=== PATIENT | male | born 1940 | race Caucasian/White ===

== ENCOUNTER 2021-09-15 12:26 | Emergency (ER) | payer MEDICARE, OTHER ==
[~2021-09-15] VITALS: Ht 185.4 cm; Wt 68.2 kg
[~2021-09-15 12:26] MED LIST: 00186-0372-20 IH; ACIPHEX PO; ACIPHEX20 MG PO; ASPI325T6 PO; CARDIZEM CD 24240 MG PO; CENTRUM SILVER1 TA1 PO; CEPHALEXIN500 M1 PO; COUMADIN 6MG6 MG/TAB PO; DEXILANT60 MG PO; IRON FERROUS S325 MG PO; LISINOPRIL20 MG PO; MOBIC15 MG PO; NASAL 15 ML15 M1 NS; NASONEX SPRAY17 GM NS; NORVASC 10MG10 MG PO; PEPCID 20MG TAB20 MG PO; PLAVIX 75MG TAB75 MG PO; PRAVACHOL 40MG40 MG PO; PRILOSEC 20MG20 MG PO; PRINIVIL10 MG PO; PROTONIX 40MG T40 MG PO; PROVENTIL0.09 MG/A1 IH; RT ADVAIR 128 DISKUS IH; TOPROL XL100 MG PO; TYLENOL 500MG500 MG PO; ULTRAM 50MG TAB50 MG PO; VITAMIN D32000 I1 PO; ZOCOR40 MG PO
[2021-09-15 12:55] VITALS: TEMP 97.7
[2021-09-15 14:17] LABS: BASO % 0.5 % (0.0-2.0); EOS # 0.1 K/mm3 (0.0-0.7); GRAN # 4.8 K/mm3 (1.4-6.5); GRAN % 65.4 % (42.2-75.2); HEMATOCRIT 37.9 % (42.0-52.0); HEMOGLOBIN 12.4 g/dl (13.5-18.0); LYMPH # 1.4 K/mm3 (1.2-3.4); LYMPH % 19.6 % (20.0-51.0); MEAN CELL VOLUME 95 fl (80.0-100.0); MEAN CORPUSCULAR HEMOGLOBIN 31 pg (27-31); MEAN CORPUSCULAR HGB CONC 33 g/dl (33.0-37.0); MEAN PLATELET VOLUME 10.8 fl (7.4-10.4); PLATELET COUNT 243 K/mm3 (130-400); RED BLOOD COUNT 3.98 M/mm3 (4.20-5.60); REDCELL DISTRIBUTION WIDTH-CV 14.1 % (11.5-14.5)
[2021-09-15 15:48] LABS: ALBUMIN 3.5 gm/dL (3.4-4.8); BILIRUBIN,TOTAL 0.8 mg/dL (0.2-1.2); CALCIUM 8.9 mg/dL (8.4-10.2); CREATININE, serum 1.21 mg/dL (0.72-1.25); POTASSIUM 4.5 mmol/L (3.5-4.5); TOTAL PROTEIN 7.2 gm/dL (6.2-8.1)
[2021-09-15 16:46] VITALS: BP 136/74; PULSE 89
== END 2021-09-15 16:46 | disposition home or self-care (01) ==
LOC: COL.ER 12:26
PROVIDERS: Emergency Medicine
DX: G89.18 Other acute postprocedural pain (principal); R60.0 Localized edema

== ENCOUNTER 2021-09-19 16:07 | Inpatient (IN) | payer MEDICARE, OTHER ==
[~2021-09-19] VITALS: Ht 167.6 cm; Wt 67.4 kg
[2021-09-19 19:00] LABS: BASO # 0.1 K/mm3 (0.0-0.2); BASO % 0.7 % (0.0-2.0); EOS # 0.1 K/mm3 (0.0-0.7); EOS % 1.7 % (0.0-4.0); GRAN # 5.9 K/mm3 (1.4-6.5); GRAN % 72.5 % (42.2-75.2); HEMOGLOBIN 11.3 g/dl (13.5-18.0); LYMPH # 1.2 K/mm3 (1.2-3.4); LYMPH % 14.6 % (20.0-51.0); MEAN CELL VOLUME 93 fl (80.0-100.0); MEAN CORPUSCULAR HEMOGLOBIN 31 pg (27-31); MEAN CORPUSCULAR HGB CONC 34 g/dl (33.0-37.0); MEAN PLATELET VOLUME 10.1 fl (7.4-10.4); MONO # 0.8 K/mm3 (0.1-0.6); MONO % 10.1 % (1.7-9.3); PLATELET COUNT 290 K/mm3 (130-400); REDCELL DISTRIBUTION WIDTH-CV 14.4 % (11.5-14.5)
[2021-09-19 19:02] LABS: HEMATOCRIT 33.4 % (42.0-52.0)
[2021-09-19 19:22] LABS: ALBUMIN 3.3 gm/dL (3.4-4.8); BILIRUBIN,TOTAL 0.9 mg/dL (0.2-1.2); C-REACTIVE PROTEIN 7.9 mg/dL (0.00-0.50); CALCIUM 8.8 mg/dL (8.4-10.2); CREATININE, serum 1.19 mg/dL (0.72-1.25); POTASSIUM 4.4 mmol/L (3.5-4.5); TOTAL PROTEIN 6.8 gm/dL (6.2-8.1)
[2021-09-19 19:26] LABS: ERYTHROCYTE SEDIMENTATION RATE 23 mm/hr (0-30)
--- NOTE | 2021-09-19 23:45 | NUR ---
PT ADMITTED TO ROOM 359 FROM EMERGENCY DEPT. SEE ASSESS. LLE UP ON PILLOWS. LLE VERY SENSITIVE TO TOUCH. CALL LIGHT IN REACH. BED ALARM SET.
[2021-09-20 00:15] VITALS: BP 141/63; PULSE 64; TEMP 97.8
[2021-09-20] MEDS ORDERED: TOPROL XL100 MG PO (00:35)
[2021-09-20] MEDS ORDERED: ZOFRAN 4MG T4 MG/TAB PO (00:37)
[2021-09-20] MEDS ORDERED: COLACE 100100 MG/CAP PO (00:39)
[2021-09-20] MEDS ORDERED: MOBIC15 MG PO (00:40)
[2021-09-20] MEDS ORDERED: ASPIRIN 32325 MG/TAB PO (00:42)
[2021-09-20] MEDS ORDERED: CEPHALEXIN500 M1 PO (00:43)
[2021-09-20] MEDS ORDERED: NORCO 325 MG-51 TAB PO (00:46)
--- NOTE | 2021-09-20 00:51 | NUR ---
Vancomycin Initial Dosing Pharmacy Note Ordering provider: Peter Baez MD Indication/duration: Cellulitis of foot x 7 days Relevant comorbidities: HTN LABS: SCr = 1.19, WBC = 8.1 Recommendation: Will draw troughs and follow levels. Loading dose: 1.25 grams Maintenance dose: 1 gram every 24 hours Trough goal: 10-15 ug/mL
--- NOTE | 2021-09-20 01:00 | NUR ---
GAVE ZOFRAN IV FOR VOMITING X2.
--- NOTE | 2021-09-20 01:58 | NUR ---
PT STILL NAUSEATED AT THIS TIME.
--- NOTE | 2021-09-20 03:00 | NUR ---
PT SLEEPING. NO FURTHER NAUSEA.
[2021-09-20 04:27] VITALS: BP 147/50; PULSE 65; TEMP 98.6
--- NOTE | 2021-09-20 04:29 | NUR ---
PT CONTINUES SLEPPING. ZOSYN INFUSING AT 25CC/HR. NO DISTRESS.
[2021-09-20 08:00] VITALS: BP 174/71; PULSE 67; TEMP 99.4
[2021-09-20 12:00] VITALS: BP 169/74; PULSE 65; TEMP 99.2
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
--- NOTE | 2021-09-20 17:33 | NUR ---
Patient resting most of the shift, was incontinent when checking VS. Easily awakened with verbal command. A&Ox3. VSS. IV CDI, fluids infusing. Denies pain and discomfort. Nursing staff ordering dinner. Call light within reach. Bed alarm on
--- NOTE | 2021-09-20 21:57 | NUR ---
PT VERY TIRED. SLEEPING ALOT. SEE SHIFT ASSESSMENT. FOUND PULSES ON LT FOOT WITH DOPPLER.
[2021-09-21 00:55] VITALS: BP 154/71; PULSE 65; TEMP 98.6
[2021-09-21 04:31] VITALS: BP 154/77; PULSE 66; TEMP 98.3
--- NOTE | 2021-09-21 05:06 | NUR ---
PT HAS SLEPT MOST OF THIS SHIFT. NO DISTRESS. OCCASIONAL LOOSE NONPRODUCTIVE COUGH NOTED. USING URINAL TONIGHT. NO INCONTINENCE. CALL LIGHT IN REACH. BED ALARM IN PLACE.
[2021-09-21 06:52] LABS: BASO % 0.4 % (0.0-2.0); EOS # 0.2 K/mm3 (0.0-0.7); EOS % 2.9 % (0.0-4.0); GRAN # 5.5 K/mm3 (1.4-6.5); GRAN % 75.5 % (42.2-75.2); HEMOGLOBIN 10.5 g/dl (13.5-18.0); LYMPH # 0.9 K/mm3 (1.2-3.4); LYMPH % 12.5 % (20.0-51.0); MEAN CORPUSCULAR HEMOGLOBIN 32 pg (27-31); MEAN CORPUSCULAR HGB CONC 32 g/dl (33.0-37.0); MEAN PLATELET VOLUME 10.2 fl (7.4-10.4); MONO # 0.6 K/mm3 (0.1-0.6); MONO % 8.4 % (1.7-9.3); PLATELET COUNT 285 K/mm3 (130-400); RED BLOOD COUNT 3.31 M/mm3 (4.20-5.60); REDCELL DISTRIBUTION WIDTH-CV 14.6 % (11.5-14.5)
[2021-09-21 07:02] LABS: HEMATOCRIT 32.5 % (42.0-52.0); MEAN CELL VOLUME 98 fl (80.0-100.0)
[2021-09-21 07:07] LABS: CALCIUM 8.2 mg/dL (8.4-10.2); CREATININE, serum 1.02 mg/dL (0.72-1.25); POTASSIUM 4.2 mmol/L (3.5-4.5)
--- NOTE | 2021-09-21 08:00 | NUR ---
Patient laying in bed resting. Easily awakened with verbal command. Nursing staff applied MARIA ESTHER hose bilateral legs, foot elevated on pillow and ice applied to left foot. Pain medication given as requested. A&Ox3. VSS. IV CDI, fluids infusing. Nursing staff assisted with ordering breakfast. Call light within reach. Bed alarm on
[2021-09-21 11:27] VITALS: BP 160/66; PULSE 65; TEMP 97.5
--- NOTE | 2021-09-21 14:47 | NUR ---
This SW received phone call from the patient's daughter stating that her father called her telling her that he was being discharged today. At the time the physician had not rounded on the patient yet. Provided her with the above update and that there was nothing notated in his chart indicating that her father was going to be discharged today.
[2021-09-21 17:09] VITALS: BP 141/56; PULSE 65; TEMP 97.8
--- NOTE | 2021-09-21 17:13 | NUR ---
MARIA ESTHER hose placed on patient, patient did not tolerate well, reports of pain in left leg/foot, not relieved with pain medication, elevation and ice. Per patient request, MARIA ESTHER hose removed, foot elevated on pillow. A&Ox3. VSS. IV CDI. Call light within reach. Bed alarm on
[2021-09-21 21:10] VITALS: BP 157/68; PULSE 65; TEMP 98.6
--- NOTE | 2021-09-21 21:35 | NUR ---
Pt resting in bed upon entering for assessment. Pt was laying on his side and down toward the bottom of the bed. He was also this way during bedside shift report. Educated the importance of him keeping his leg elevated and not having anything under his knee. Pt cannot completely straighten his left leg at this time. Pts left foot is slightly swollen, reddish/purplish in color. There are several blisters to the top of his foot that have popped and 2 blisters that have not popped yet. Pts foot is very tender to the touch, but reports not having any pain when left alone. Pt does answer questions appropriately when assessing orientation, but does seem to not have a clear understanding about what is going on. Pt just grins, nods and says "okay" when I talk about the imporance of having ice on, chris hose, keeping leg elevated and nothing under knee. Then when I say "I am going to get an ice pack for your foot," he then refuses and says he doesn't want it. Same goes for the chris hose. Shortly after leaving the room, pt then rang call light asking for pain medicaiton and was again layin on his side with legs bent and not elevated.
[2021-09-22] VITALS (7 sets, daily range): BP systolic 128–146; BP diastolic 47–82; PULSE 64–66; TEMP 97.5–97.8
[2021-09-22 06:35] LABS: CALCIUM 8.1 mg/dL (8.4-10.2); CREATININE, serum 0.99 mg/dL (0.72-1.25); POTASSIUM 3.8 mmol/L (3.5-4.5)
[2021-09-22 06:41] LABS: BASO % 0.6 % (0.0-2.0); EOS # 0.2 K/mm3 (0.0-0.7); EOS % 3.1 % (0.0-4.0); GRAN # 4.8 K/mm3 (1.4-6.5); GRAN % 72.3 % (42.2-75.2); HEMOGLOBIN 10.3 g/dl (13.5-18.0); LYMPH % 14.8 % (20.0-51.0); MEAN CELL VOLUME 95 fl (80.0-100.0); MEAN CORPUSCULAR HEMOGLOBIN 32 pg (27-31); MEAN CORPUSCULAR HGB CONC 33 g/dl (33.0-37.0); MEAN PLATELET VOLUME 10.2 fl (7.4-10.4); MONO # 0.6 K/mm3 (0.1-0.6); MONO % 8.8 % (1.7-9.3); PLATELET COUNT 261 K/mm3 (130-400); RED BLOOD COUNT 3.27 M/mm3 (4.20-5.60); REDCELL DISTRIBUTION WIDTH-CV 14.4 % (11.5-14.5)
--- NOTE | 2021-09-22 09:12 | NUR ---
Scheduled medications given. Shift assessment performed. VSS. Patient A&O. Patient states that he has 4/10 aching pain in his left foot, but denies the need for any interventions at this time. Left foot red and swollen. Scabbed over blisters noted. Patient denies any further pain, discomfort, SOA, or further needs at this time. Call light in reach. Fall percautions in place.
--- NOTE | 2021-09-22 15:03 | NUR ---
Global Climate Change Researcher met with patient and patient's daughter, Camryn to discuss PT recommendation for post acute rehab. Patient is agreeable to this and would like referrals sent to [facility], and [facility]. Patient is adamant that he will not go to [facility] in . VAL contacted [facility] Director to give referral. VAL then faxed referrals to [facility], and [facility]. Discharge Plan: Post acute rehab
--- NOTE | 2021-09-22 15:53 | NUR ---
Lisa jacobo [facility] advised they can accept referral.
--- NOTE | 2021-09-22 18:23 | NUR ---
Patient has had an ok day. PRN pain medications given for pain in LLE. Patient unable to bear weight on extremity without extreme pain. Patient currenlty resting in bed. No signs of pain, discomfort, SOA, or further needs at this time. Call light in reach. Fall percautions in place. VSS. Patient A&O.
--- NOTE | 2021-09-22 19:15 | NUR ---
MANFRED De contacted regarding worsening discoloration and edema to patient's LLE. Doppler used, pulse found. Verbal orders to check pulses on effected extremity q2 hours and report any increased pain, discomfort, or loss of pulses. Information passed on to JONEL Cohen.
--- NOTE | 2021-09-22 20:30 | NUR ---
Initial shift assessment done. Alert/oriented/very pleasant, states hisL/ foot pain is 8/10- will give a [place] at this time, Left foot is very purplish/red, with black areas over top of foot-, has good sensation, tried to find pulses with doppler and having a hard time- called Charo SHEARER and she came and we did get both DP and PT pulses with doppler, she states its ok to do pulses every 4 hours now,, does have bruising all up to left leg thigh
[2021-09-23] VITALS (7 sets, daily range): BP systolic 131–154; BP diastolic 62–78; PULSE 64–65; TEMP 97.3–98.3
--- NOTE | 2021-09-23 00:15 | NUR ---
DP AND PT pedal pulses found per doppler at this time-left foot
--- NOTE | 2021-09-23 04:00 | NUR ---
Has been resting on and off this shift- VSS, did hear doppler pulses at this time to left foot ,DP and PT , overall left foot/ leg remains the same-no changes during the night. denies need for pain meds at this time-
[2021-09-23 06:38] LABS: BASO # 0.1 K/mm3 (0.0-0.2); BASO % 0.6 % (0.0-2.0); EOS # 0.3 K/mm3 (0.0-0.7); EOS % 3.9 % (0.0-4.0); GRAN # 5.8 K/mm3 (1.4-6.5); GRAN % 74.9 % (42.2-75.2); HEMOGLOBIN 10.9 g/dl (13.5-18.0); LYMPH # 0.9 K/mm3 (1.2-3.4); LYMPH % 11.9 % (20.0-51.0); MEAN CELL VOLUME 95 fl (80.0-100.0); MEAN CORPUSCULAR HEMOGLOBIN 31 pg (27-31); MEAN CORPUSCULAR HGB CONC 33 g/dl (33.0-37.0); MEAN PLATELET VOLUME 10.1 fl (7.4-10.4); MONO # 0.6 K/mm3 (0.1-0.6); MONO % 8.2 % (1.7-9.3); PLATELET COUNT 259 K/mm3 (130-400); REDCELL DISTRIBUTION WIDTH-CV 14.5 % (11.5-14.5)
[2021-09-23 06:39] LABS: HEMATOCRIT 33.4 % (42.0-52.0)
[2021-09-23 06:49] LABS: CALCIUM 8.4 mg/dL (8.4-10.2); CREATININE, serum 0.9 mg/dL (0.72-1.25); POTASSIUM 3.9 mmol/L (3.5-4.5)
--- NOTE | 2021-09-23 07:00 | NUR ---
0700 shift assessment completed. Pt alert/ resting in bed. Breath sounds in upper lobes coarse rhonchi/diminished at bilateral bases. Pt encouraged to CDB. Room sats 96% no shortness of breath noted at rest. Left knee incision CDI. Moderate swelling with redness to the L knee. Multiple skin lesions to the antiorior L foot, intact with no drainage noted. L pedal pulses obtained by doppler. CMS cks to BLE. Rt foot lesion intact. INT intact to Rt AC. INT intact to L forearm no redness, drainage. Pt reports tenderness to LLE upon palpation.
--- NOTE | 2021-09-23 08:00 | NUR ---
Patient refusing MARIA ESTHER hose and ice on LLE. MARIA ESTHER hose in use on the RLE. Will attempt to use different type of compression device.
--- NOTE | 2021-09-23 08:09 | NUR ---
Shift assessment performed. Scheduled medications to be given by student nurse, under the supervision of a licensed professional. +2 edema noted in patient left foot. Foot is red and warm to the touch. Toes are cool to the touch and partially purple in color. Patient is still able to feel sensation and has movement in the extremity. Bruising noted on LLE. Pedal pulses found using doppler. Patient states that he is having aching pain rated a 5/10 in the LLE. Pain medication offered, patient stated that he would like to wait until pain is at a higher level before recieving medication. VSS. Patient A&O. Patient denies any further pain, discomfort, SOA, or further needs at this time. Call light in reach. Fall percautions in place.
--- NOTE | 2021-09-23 18:20 | NUR ---
Patient has had a rough day. Pain medication given several times this shift. MARIA ESTHER hose placed on patient's LLE. Pain increased with use of MARIA ESTHER hose. MANFRED Soares notified. Pain medication dose increased. Patient states that this has helped lower his pain from 9/10 to a 3/10. Pedal pulses located Q4 hours with the doppler. During infusion of Vancomycin, arm became red, itchy, and painful. Infusion stopped and IV removed. Cold compress placed on site. MANFRED Soares notified, Vancomycin infusion DC'd. Vitals have remained stable. Patient A&O. Patient denies any further pain, discomfort, SOA, or further needs at this time. Call light in reach. Fall percautions in place.
--- NOTE | 2021-09-23 21:00 | NUR ---
Initial shift assessment done- states having pain to left foot 01/11,, [place] given per orders- Teds on bilaterally- left foot remains red/purplish,very tender with various areas of black on top of foor- toes cool but pt able to feel sensation- did get DP pulse on left foot with doppler. Bed alarm on-
--- NOTE | 2021-09-24 01:30 | NUR ---
Left foot DP pulse audible with doppler at this time--found patient holding his INt-- doesnt know how it got pulled out;; restarted a new INT to left upper arm. Is slightly confused this morning-- thinks he is in the "[facility]"
--- NOTE | 2021-09-24 03:05 | NUR ---
Elena given for left foot pain 03/14-no other requests, has slept for just a few hours tonight-
[2021-09-24 03:49] VITALS: BP 132/75; PULSE 65; TEMP 98.7
[2021-09-24 06:39] LABS: BASO % 0.4 % (0.0-2.0); EOS # 0.3 K/mm3 (0.0-0.7); EOS % 4.3 % (0.0-4.0); GRAN # 5.7 K/mm3 (1.4-6.5); GRAN % 73.6 % (42.2-75.2); HEMOGLOBIN 10.5 g/dl (13.5-18.0); LYMPH % 12.7 % (20.0-51.0); MEAN CELL VOLUME 95 fl (80.0-100.0); MEAN CORPUSCULAR HEMOGLOBIN 31 pg (27-31); MEAN CORPUSCULAR HGB CONC 32 g/dl (33.0-37.0); MEAN PLATELET VOLUME 10.3 fl (7.4-10.4); MONO # 0.7 K/mm3 (0.1-0.6); MONO % 8.5 % (1.7-9.3); PLATELET COUNT 259 K/mm3 (130-400); REDCELL DISTRIBUTION WIDTH-CV 14.6 % (11.5-14.5)
[2021-09-24 06:41] LABS: HEMATOCRIT 32.4 % (42.0-52.0)
[2021-09-24 06:45] LABS: CREATININE, serum 1.04 mg/dL (0.72-1.25); POTASSIUM 3.8 mmol/L (3.5-4.5)
[2021-09-24 07:00] VITALS: BP 142/64; PULSE 65; TEMP 97.3
--- NOTE | 2021-09-24 08:11 | NUR ---
Scheduled assessment performed. Medications to be given by student nurse under the supervision of a licensed proffessional. Patient stated that he was having 7/10 aching/sharp pain in his left foot. PRN medication given. Patient had an episode of incontinence this am, which is not usual behavior. Urine was dark kenneth in color and had an odor. Urine in urinal was also dark kenneth with sediment present. Abdomen is firm, bowel sounds present in all four quadrants. MANFRED Soares contacted by student nurse regarding the above issues. UA order placed, stool softners ordered. Doppler used to successfully find pedal pulses. Patient A&O, but is having some intermittent confusion. VSS. Patient denies any further pain, discomfort, SOA, or needs at this time. PO intake encouraged. Call light in reach. Fall percautions in place.
--- NOTE | 2021-09-24 08:30 | NUR ---
0700 shift assessment completed. Pt alert/ resting in bed. Pt was incontinent of urine with mild confusion stating "my girlfriend is Angela". Urine was kenneth and foul smelling with sediment. Primary nurse notified. Breath sounds in upper lobes coarse rhonchi and diminished bilaterally in bases. Room sats at 92% room air with no shortness of breath noted. Lt knee incision well approximated with moderate swelling and warmth. Multiple blisters to the Lt foot intact with scant amount of drainage. Lt and rt pedal pulses obtained via doppler. CMS checks to BLE with pain to palpation to LLE. INT to Lt upper arm inact with no swelling or redness. Abdomen rigid and patient reports being "uncomfortable" due to not having a BM since 09/21. Primary nurse notified. Continuing to encourage PO fluids.
--- NOTE | 2021-09-24 09:00 | NUR ---
0845 UA specimine collected. Clear kenneth urine taken to lab.
[2021-09-24 09:30] LABS: MUCOUS Present (NOT PRESENT); PH 5 (5-8); URINE APPEARANCE Hazy (CLEAR/HAZY); URINE BACTERIA None Seen /hpf (NONE SEEN); URINE BILIRUBIN Negative (NEGATIVE); URINE BLOOD 1+ (NEGATIVE); URINE COLOR Yellow (YELLOW); URINE GLUCOSE Negative (NEGATIVE); URINE KETONE Negative (NEGATIVE); URINE LEUKOCYTE ESTERASE 1+ (NEGATIVE); URINE NITRATE Negative (NEGATIVE); URINE PROTEIN(semi-quant) Negative (NEGATIVE); URINE UROBILINOGEN Negative (NEGATIVE)
[2021-09-24 09:45] LABS: COLLECTION METHOD CLEAN CATCH
[2021-09-24 11:00] VITALS: BP 131/70; PULSE 64; TEMP 97.2
--- NOTE | 2021-09-24 11:00 | NUR ---
1100 Lt and Rt pedal pulses found via doppler
--- NOTE | 2021-09-24 13:45 | NUR ---
Insole Coverer attended clinical rounds with the team and patient will likely discharge tomorrow. Hospitalist advised that he would recommend SNF for patient. VAL collaborated with Cora, [facility] Director who was in agreement and had concerns about patient tolerating three hours of therapy daily. VAL followed up with patient to discuss SNF preferences. SW advised both [facility] and [facility] can accept. Patient advised that Lisa from [facility] came to visit him so he would like to go to [facility] tomorrow for rehab. VAL presented and reviewed IM form with patient who verbalized understanding and provided signature. SW placed form in chart and provided copy to patient. VAL contacted patient's [facility], Camryn who [facility] VAL notified Barber at [facility] that patient will likely be ready for discharge tomorrow. Discharge Plan: [facility] SNF
[2021-09-24 15:45] VITALS: BP 136/54; PULSE 65; TEMP 97.8
--- NOTE | 2021-09-24 16:20 | NUR ---
Patient has had an ok day. Pain medication given as needed. Pedal found using doppler. Patient is A&O, but does experience intermittent confusion. VSS. Patient denies any pain, discomfort, SOA, or further needs at this time. Call light in reach. Fall percautions in place.
[2021-09-24 20:53] VITALS: BP 162/74; PULSE 65; TEMP 97.7
[2021-09-25 00:44] VITALS: BP 100/47; PULSE 69; TEMP 97.9
[2021-09-25 04:48] VITALS: BP 140/85; PULSE 65; TEMP 97.7
[2021-09-25 06:26] LABS: BASO # 0.1 K/mm3 (0.0-0.2); BASO % 0.6 % (0.0-2.0); EOS # 0.4 K/mm3 (0.0-0.7); EOS % 4.5 % (0.0-4.0); GRAN # 5.8 K/mm3 (1.4-6.5); GRAN % 72.4 % (42.2-75.2); LYMPH # 1.1 K/mm3 (1.2-3.4); LYMPH % 13.6 % (20.0-51.0); MEAN CELL VOLUME 94 fl (80.0-100.0); MEAN CORPUSCULAR HEMOGLOBIN 31 pg (27-31); MEAN CORPUSCULAR HGB CONC 33 g/dl (33.0-37.0); MEAN PLATELET VOLUME 10.2 fl (7.4-10.4); MONO # 0.7 K/mm3 (0.1-0.6); MONO % 8.7 % (1.7-9.3); PLATELET COUNT 240 K/mm3 (130-400); RED BLOOD COUNT 3.52 M/mm3 (4.20-5.60); REDCELL DISTRIBUTION WIDTH-CV 14.3 % (11.5-14.5)
[2021-09-25 06:29] LABS: HEMATOCRIT 33.2 % (42.0-52.0)
[2021-09-25 06:45] LABS: C-REACTIVE PROTEIN 9.08 mg/dL (0.00-0.50); CALCIUM 8.4 mg/dL (8.4-10.2); CREATININE, serum 0.89 mg/dL (0.72-1.25); MAGNESIUM 1.9 mg/dL (1.6-2.6); POTASSIUM 3.7 mmol/L (3.5-4.5)
[2021-09-25 08:26] VITALS: BP 148/82; PULSE 63; TEMP 97.8
[2021-09-25] MEDS ORDERED: DOXYCYCLINE 10100 MG PO (11:33)
[2021-09-25] MEDS ORDERED: ZOFRAN 4MG T4 MG/TAB PO (11:34)
[2021-09-25] MEDS ORDERED: PROTONIX 40MG T40 MG PO (11:34)
[2021-09-25] MEDS ORDERED: RT ADVAIR 128 DISKUS IH (11:35)
[2021-09-25] MEDS ORDERED: COLACE 100100 MG/CAP PO (11:35)
[2021-09-25] MEDS ORDERED: MIRALAX PA17 GM/Dose PO (11:36)
[2021-09-25] MEDS ORDERED: NORCO 325 MG-7.1 TAB PO (11:37)
[2021-09-25] MEDS ORDERED: CARDIZEM CD 24240 MG PO (11:39)
[2021-09-25] MEDS ORDERED: ASPIRIN 32325 MG/TAB PO (11:39)
[2021-09-25] MEDS ORDERED: TOPROL XL100 MG PO (11:40)
[2021-09-25 11:46] VITALS: BP 165/71; PULSE 65; TEMP 97.7
--- NOTE | 2021-09-25 11:56 | NUR ---
Medical Education Manager faxed clinical updates to Barber at [facility]. Patient will discharge on oral antibiotics. Barber reviewed updates and advised they can accept today. Transport time set for 1300. VAL provided transport time to patient and patient's daughter, Camryn. Both are in agreement. VAL faxed discharge orders and negative covid results to Barber at [facility]. Discharge Plan: [facility]
--- NOTE | 2021-09-25 13:14 | NUR ---
Patient discharged to [facility]. Has done well today and did not express any concerns. Did have some pain in his left knee, PRN tylenol provided. This RN will call report to the SNF.
--- NOTE | 2021-09-25 13:15 | NUR ---
Primary nurse was assisted with [phone] patient care by [employer] student Peri Vergara and [employer] instructor Gwen Griggs MSN, RN.
--- NOTE | 2021-09-25 14:21 | NUR ---
Barber from [facility] requests the patient's I&O. Clinical information faxed to Barber.
== END 2021-09-25 13:10 | DRG 603 ==
LOC: COL.ER 16:07 → MEDICAL 21:17
PROVIDERS: Emergency Medicine; Internal Medicine; Physician Assistant; Student in an Organized Health Care Education/Training Program; ADMIT Internal Medicine
DX: L03.116 Cellulitis of left lower limb (principal); E87.2 Acidosis; E44.0 Moderate protein-calorie malnutrition; I25.10 Atherosclerotic heart disease of native coronary artery without angina pectoris; I10 Essential (primary) hypertension; F17.210 Nicotine dependence, cigarettes, uncomplicated; I73.9 Peripheral vascular disease, unspecified; K21.9 Gastro-esophageal reflux disease without esophagitis; J44.9 Chronic obstructive pulmonary disease, unspecified; Z20.822 Contact with and (suspected) exposure to COVID-19; Z96.653 Presence of artificial knee joint, bilateral; Z86.73 Personal history of transient ischemic attack (TIA), and cerebral infarction without residual deficits; Z85.828 Personal history of other malignant neoplasm of skin; Z68.23 Body mass index [BMI] 23.0-23.9, adult
CPT/HCPCS: 99223-AI; 99232-AI; 99233-AI; 99239; J1885; J2270; J2405; J2543; J3010; J3370; J7030; J7050; Q9967